=== PATIENT | female | born 1965 | race American Indian/Alaskan Native ===

== ENCOUNTER 2017-11-13 09:25 | Emergency (ER) | payer OTHER ==
[2017-11-13 09:47] VITALS: BP 117/75
[2017-11-13] MEDS ORDERED: ATROVENT IH ONE (11:09)
[2017-11-13] MEDS ORDERED: DELTASONE PO ONE (11:09)
[2017-11-13] MEDS ORDERED: PROVENTIL IH ONE (11:09)
--- NOTE | 2017-11-13 11:10 | Emergency Department Report ---
Blank Doc - Documentation Documentation: is a 52-year-old female who has had cough is productive of yellow sputum for approximately 1 week. Patient been taking rzye-lcm-kdsyxbi meds without relief. Patient on focused physical exam does have diffuse wheeze that is mild. Patient is alert and oriented in no acute distress. Patient moved to a treatment room for nebulizer treatment. Patient is a smoker and has been counseled. Chest x-ray will be done as well to rule out atypical pneumonia.
--- NOTE | 2017-11-13 12:07 | Emergency Department Report ---
- General Chief Complaint: Pain General Stated Complaint: BODY PAIN Time Seen by Provider: 11/13/17 11:06 Source: patient Mode of arrival: Ambulatory Limitations: No Limitations - History of Present Illness Initial Comments: Disposition is a 52-year-old [place] female who is presenting with a week of cough. Patient states cough is productive of yellow sputum. Patient also has some mild body aches as well. Patient been taking [id number] meds such as NyQuil with no relief. Patient is a smoker. She denies nausea vomiting fevers chills or diarrhea at this time. Severity scale (0 -10): 5 Quality: aching Associated Symptoms: myalgias, nasal congestion, cough, shortness of breath. denies: diaphoresis, headache, sore throat, stiff neck, chest pain, abdominal pain, nausea, vomiting, diarrhea, dysuria, rash, confusion, right sweats, weight loss, epistaxis, hoarseness - Related Data Previous Rx's Medication Instructions Recorded Last Taken Type ALBUTEROL Inhaler (OR & NICU) 2 puff IH QID PRN #1 inhalation 11/13/17 Unknown Rx [ProAir HFA Inhaler] HYDROcodone/APAP 5-325 [[place] 1 each PO Q4HR PRN #12 tablet 11/13/17 Unknown Rx 5/325] levoFLOXacin [Levaquin TAB] 500 mg PO QDAY #10 tablet 11/13/17 Unknown Rx predniSONE [Deltasone] 20 mg PO QDAY #5 tab 11/13/17 Unknown Rx Allergies Allergy/AdvReac Type Severity Reaction Status Date / Time Penicillins Allergy Itching Verified 11/13/17 09:44 ED Review of Systems ROS: Stated complaint: BODY PAIN Other details as noted in HPI Comment: All other systems reviewed and negative ED Past Medical Hx - Past Medical History Previous Medical History?: No Additional medical history: Gallstones, Right breast surgery - Surgical History Past Surgical History?: Yes Hx Cholecystectomy: Yes Hx Breast Surgery: Yes (Right breast) - Social History Smoking Status: Current Every Day Smoker Substance Use Type: Non Opiate Pain - Medications Home Medications: Home Medications Medication Instructions Recorded Confirmed Last Taken Type ALBUTEROL Inhaler (OR & NICU) 2 puff IH QID PRN #1 inhalation 11/13/17 Unknown Rx [ProAir HFA Inhaler] HYDROcodone/APAP 5-325 [[place] 1 each PO Q4HR PRN #12 tablet 11/13/17 Unknown Rx 5/325] levoFLOXacin [Levaquin TAB] 500 mg PO QDAY #10 tablet 11/13/17 Unknown Rx predniSONE [Deltasone] 20 mg PO QDAY #5 tab 11/13/17 Unknown Rx ED Physical Exam - General Limitations: No Limitations General appearance: alert, in no apparent distress - Head Head exam: Present: atraumatic, normocephalic - Eye Eye exam: Present: normal appearance - ENT ENT exam: Present: mucous membranes moist - Neck Neck exam: Present: normal inspection - Respiratory Respiratory exam: Present: normal lung sounds bilaterally, wheezes, rhonchi. Absent: respiratory distress, rales - Cardiovascular Cardiovascular Exam: Present: regular rate, normal rhythm. Absent: systolic murmur, diastolic murmur, rubs, gallop - GI/Abdominal GI/Abdominal exam: Present: soft, normal bowel sounds. Absent: distended, tenderness, guarding, rebound - Extremities Exam Extremities exam: Present: normal inspection - Back Exam Back exam: Present: normal inspection - Neurological Exam Neurological exam: Present: alert, oriented X3 - Psychiatric Psychiatric exam: Present: normal affect, normal mood - Skin Skin exam: Present: warm, dry, intact, normal color. Absent: rash ED Course Vital Signs 11/13/17 11/13/17 09:44 11:32 Temperature 98.7 F Pulse Rate 98 H Pulse Rate [ 82 Posterior Bilateral Throughout] Respiratory 18 Rate Respiratory 18 Rate [Posterior Bilateral Throughout] Blood Pressure 117/75 O2 Sat by Pulse 98 Oximetry ED Medical Decision Making - Radiology Data interpreted by me: Infiltrate to the right middle lobe consistent with pneumonia - Medical Decision Making Patient's did receive albuterol Atrovent treatment and wheezing did improve. She's continued to have some persistent right sided rhonchi. Chest x-ray is suggestive of early infiltrate in the right middle lobe. Patient's O2 sat is in high 90s and she appears well. Patient is a good candidate for outpatient therapy. Patient started on Levaquin be discharged home. Critical care attestation.: If time is entered above; I have spent that time in minutes in the direct care of this critically ill patient, excluding procedure time. ED Disposition Clinical Impression: Pneumonia Qualifiers: Pneumonia type: due to unspecified organism Laterality: right Lung location: middle lobe of lung Qualified Code(s): J18.1 - Lobar pneumonia, unspecified organism Disposition: TO HOME OR SELFCARE Is pt being admited?: No Does the pt Need Aspirin: No Condition: Stable Instructions: Bacterial Pneumonia (ED) Referrals: PRIMARY CARE, [Primary Care Provider] - 3-5 Days Time of Disposition: 12:07
--- NOTE | 2017-11-13 12:29 | XRay Report ---
FINAL REPORT EXAM: XR CHEST ROUTINE 2V HISTORY: chest pain COMPARISON: None. TECHNIQUE: Frontal and lateral views of the chest FINDINGS: The cardiomediastinal silhouette is normal in appearance. There is subtle patchy opacity in the right middle lobe concerning for developing pneumonia. The left lung is clear. No pleural effusion or pneumothorax. No acute bony or soft tissue abnormality. IMPRESSION: Subtle patchy opacity in the right middle lobe concerning for developing pneumonia.
== END 2017-11-13 12:30 | disposition home or self-care (01) ==
LOC: ED 09:25
DX: J18.1 Lobar pneumonia, unspecified organism (principal); F17.200 Nicotine dependence, unspecified, uncomplicated; Z88.0 Allergy status to penicillin; Z90.49 Acquired absence of other specified parts of digestive tract
CPT/HCPCS: 71046; 94640; 99283; J7512